=== PATIENT | male | born 1940 | race Caucasian/White ===

== ENCOUNTER → 2020-04-16 | Outpatient (CLI) | payer OTHER ==
[~2020-04-16] MED LIST: BENICAR20 MG PO; CALCIUM 600 +1 EA10 PO; ELIQUIS5 MG PO; FUROSEMIDE 20 M20 M1 PO; IPRAT-ALBUT 0.5-3 ML INH; LECITHIN1200 M1 PO; LEVOTHYROXINE112 MCG PO; LEXAPRO 10 MG T10 M1 PO; MULTIPLE VITAM1 EAC4 PO; NORVASC 2.5 MG2.5 M1 PO; OCUVITE ADULT1 EAC1 PO; PROSCAR 5MG TABL5 MG PO; TAMSULOSIN HCL0.4 MG PO; TOPROL XL100 MG PO; VITAMIN D325 MC3 PO
== END ==
LOC: LAB 12:24
PROVIDERS: ATTEND Ophthalmology
DX: Z01.812 Encounter for preprocedural laboratory examination (principal); Z20.828 Contact with and (suspected) exposure to other viral communicable diseases

== ENCOUNTER 2020-04-19 07:16 | Day surgery (SDC) | payer OTHER ==
[~2020-04-19] VITALS: Ht 165.1 cm; Wt 77.1 kg
[2020-04-19 10:04] VITALS: BP 132/86
--- NOTE | 2020-04-23 06:21 | O ---
[facility] [place] [address] OPERATIVE REPORT Name: AUSTIN VILLANUEVA Room #: DEP [facility]..#: [id number] Admission: 04/19/20 Attend Phys: Oral Frederick MD Discharge: 04/19/20 Date of : 38 Report #: [id number] THIS REPORT FOR: cc: Ortega Coppola MD,Ortega Frederick,Oral Guzman MD ~ CC: Ortega Frederick DATE OF SERVICE: 04/19/2020 SURGEON: Oral Frederick MD PREOPERATIVE DIAGNOSIS: Bilateral upper lid ptosis with superior visual field defects both eyes. POSTOPERATIVE DIAGNOSIS: Bilateral upper lid ptosis with superior visual field defects both eyes. OPERATION PERFORMED: Bilateral upper lid functional ptosis repair. SALES PRODUCT MANAGER: None. ANESTHESIA: Local with IV sedation. COMPLICATIONS: None. INDICATIONS FOR PROCEDURE: This patient has bilateral upper lid ptosis with superior visual field loss both eyes. Visual field testing demonstrates dense superior visual defects. Retesting with the upper lid elevated shows an improvement in visual field loss of over 30% and in excess of 12 degrees. The current procedure is being undertaken in order to improve the patient's visual function. Informed consent was obtained to include but not limited to the risk of loss of vision, bleeding, infection, scarring, failure to improve the problem and need for further surgery, such as adjustment of lid height. DESCRIPTION OF PROCEDURE: The patient was taken to the operating room, where 2% Xylocaine with epinephrine mixed with equal parts of 0.75% Marcaine with Wydase was administered transcutaneously to each upper lid. The patient was then prepped and draped in the usual sterile fashion. An upper lid crease incision was then made bilaterally and the dissection was [address] [address] OPERATIVE REPORT Name: KAYAUSTIN Room #: DEP [facility].#: [id number] Admission: 04/19/20 Attend Phys: Oral Frederick MD Discharge: 04/19/20 Date of : 38 Report #: [id number] carried down until the orbital septum was identified. The orbital septum was then cleared and the preaponeurotic fat identified. The levator aponeurosis was then disinserted from the anterior surface of the tarsal plate and dissected free in the avascular Junior's muscle plane. The aponeurosis was then advanced and reattached to the anterior surface of the tarsal plate with interrupted mattress 6-0 Novafil sutures on each side, adjusting for height and contour. The redundant aponeurosis was then amputated. The incision was then closed with multiple interrupted 6-0 chromic sutures that were used to recreate an upper lid crease. The skin was closed with a running 6-0 plain gut suture. The wound was then cleaned and dressed with ophthalmic antibiotic ointment followed by a Telfa pad. The patient was transported to the recovery area, having tolerated the procedure well with no anesthesia or operative complications being noted. <ELECTRONICALLY SIGNED> By: Oral Frederick MD 04/23/20 0621 [id number] Oral Frederick MD /nt
== END 2020-04-19 11:15 | disposition home or self-care (01) ==
LOC: OR 07:16 → TBA 07:16 → OR 10:40
PROVIDERS: ATTEND Ophthalmology
DX: H02.413 Mechanical ptosis of bilateral eyelids (principal); H53.462 Homonymous bilateral field defects, left side; H53.461 Homonymous bilateral field defects, right side; I10 Essential (primary) hypertension; E11.9 Type 2 diabetes mellitus without complications; I48.91 Unspecified atrial fibrillation; E03.9 Hypothyroidism, unspecified; Z98.890 Other specified postprocedural states; Z79.899 Other long term (current) drug therapy; Z96.642 Presence of left artificial hip joint; Z90.49 Acquired absence of other specified parts of digestive tract; Z87.891 Personal history of nicotine dependence; Z79.01 Long term (current) use of anticoagulants
CPT/HCPCS: 50010; 50101; 50386; 50398; 51636; 56528; 56531; 62110; 62850; 70005